=== PATIENT | male | born 1950 | race African-American/Black ===

== ENCOUNTER → 2017-06-26 | Outpatient (CLI) | payer MEDICARE, OTHER ==
[~2017-06-26] VITALS: Ht 182.9 cm; Wt 121.1 kg
[~2017-06-26] MED LIST: ADENOSINE 102 MG in GIVE UN-DILUTED 0 ML IV ONE; ADENOSINE 90 MG/30 ML INJ IV ONE; ATEN50TA OR; ENAL-3 OR; GABA-497 OR; INSUPOW; METF-370 OR
== END | disposition home or self-care (01) ==
LOC: Rad HDHVI 14:36
PROVIDERS: ATTEND Internal Medicine Cardiovascular Disease
DX: I10 Essential (primary) hypertension (principal); E78.00 Pure hypercholesterolemia, unspecified; I25.2 Old myocardial infarction; Z95.0 Presence of cardiac pacemaker
CPT/HCPCS: 78452; 93005; 96374; 96375; A9500; J0153

== ENCOUNTER 2017-09-04 17:36 | Emergency (ER) | payer MEDICARE, OTHER ==
[~2017-09-04] VITALS: Ht 182.9 cm; Wt 104.3 kg
[~2017-09-04 17:36] MED LIST changes: -ADENOSINE 102 MG in GIVE UN-DILUTED 0 ML IV ONE; -ADENOSINE 90 MG/30 ML INJ IV ONE; +ASPI81CH43 PO; -ATEN50TA OR; +ATOR20TA50 PO; +CHOL20007 PO; +CYCL5TAB PO; -ENAL-3 OR; +FURO20TA PO; -GABA-497 OR; +GABA-497 PO; +HYDR-4683 PO; -INSUPOW; +LISI10TA6 PO; -METF-370 OR; +METF-372 PO; +[UNRECOGNIZED DRUG - CODE] IV
[2017-09-04 19:03] VITALS: BP 111/78
[2017-09-04] MEDS ORDERED: LIDOCAINE 1% HCL (LOCAL ANESTH.) INJ 20ML MDV ONE (19:25)
[2017-09-04] MEDS ORDERED: cefTRIAXone SOD 1,000 MG VL IM ONE (19:30)
[2017-09-04 20:01] LABS: Urine Bacteria NONE SEEN /hpf (None Seen); Urine Blood 1+ /uL (Negative); Urine Mucus FEW (None Seen); Urine Specific Gravity 1.026 (1.001-1.035); Urine WBC 14 /hpf (0 - 3)
[2017-09-04] MEDS ORDERED: TIMOLOL MALEATE 0.25 % OPTH SOL 5ML LEFTEYE ONE (21:00)
== END 2017-09-04 22:22 | disposition home or self-care (01) ==
LOC: ER 17:37
DX: L03.116 Cellulitis of left lower limb (principal); H40.059 Ocular hypertension, unspecified eye; R51 Headache; F17.210 Nicotine dependence, cigarettes, uncomplicated; I50.9 Heart failure, unspecified; I11.0 Hypertensive heart disease with heart failure; J44.9 Chronic obstructive pulmonary disease, unspecified; E11.9 Type 2 diabetes mellitus without complications; Z86.73 Personal history of transient ischemic attack (TIA), and cerebral infarction without residual deficits
CPT/HCPCS: 70450; 73700; 81001; 96372; 99285; J0696; J2001

== ENCOUNTER 2018-01-13 09:04 | Inpatient (IN) | payer MEDICARE, OTHER ==
[~2018-01-13] VITALS: Ht 185.4 cm; Wt 124.2 kg
[~2018-01-13 09:04] MED LIST changes: -GABA-497 PO; +GABA300C10 PO
[2018-01-13] MEDS ORDERED: SODIUM CHLORIDE 0.9% 2,000 ML IV ONE (10:19)
[2018-01-13] MEDS ORDERED: TETANUS-DIPTH-ACEL PERTUSSIS 0.5ML SYRG IM ONE (11:30)
[2018-01-13] MEDS ORDERED: cefTRIAXone 1GM/10ml IVPUSH 10 ML IV ONE (11:30)
[2018-01-13 11:41] LABS: Basophils # (auto) 0 uL; Basophils % (auto) 0.5 % (0.0-2.0); Eosinophils # (auto) 0 uL; Eosinophils % (auto) 0.7 % (0.0-7.0); Hematocrit 43.3 % (41.0-53.0); Hemoglobin 14.2 g/dL (13.5-17.5); Lymphocytes # (auto) 2.1 uL; Lymphocytes % (auto) 34.6 % (10.0-50.0); Mean Corpuscular Hemoglobin 28.2 pg (28.0-32.0); Mean Corpuscular Hgb Conc. 32.8 g/dL (32.0-36.0); Monocytes # (auto) 0.5 uL; Neutrophils # (auto) 3.3 uL; Neutrophils % (auto) 55.2 % (37.0-80.0); Nucleated Red Blood Cells % 0.1 %; Platelet Count (auto) 184 10^3/uL (140-450); Red Blood Cells 5.03 10^6/uL (4.5-5.90); Red Cell Distribution Width 14.4 % (11.8-14.3)
[2018-01-13 11:54] LABS: INR 1.06 (0.9-1.15); Partial Thromboplastin Time 29.3 sec (22.64-33.71); Prothrombin Time 11.6 sec (9.37-12.3)
[2018-01-13 12:03] LABS: Albumin 2.8 g/dL (3.4-5.0); BUN/Creatinine Ratio 10.2; Bilirubin, Total 0.5 mg/dL (0.2-1.0); Potassium 3.1 mmol/L (3.5-5.1); Total Protein 6.5 g/dL (6.4-8.2)
[2018-01-13] MEDS ORDERED: DEXTROSE (50%) 50ML SYRG IV PRN (13:30)
[2018-01-13] MEDS ORDERED: ACETAMINOPHEN 325 MG TAB PO PRN (13:45)
[2018-01-13] MEDS ORDERED: HYDROcodone-ACET 5/325MG TAB PO PRN (13:45)
[2018-01-13] MEDS ORDERED: MORPHINE SULFATE 4 MG/ML SYR/VIAL IV PRN (13:45)
[2018-01-13] MEDS ORDERED: TEMAZEPAM 15 MG CAP PO PRN (13:45)
[2018-01-13] MEDS ORDERED: cloNIDine HCL 0.1 MG TAB PO PRN (13:45)
[2018-01-13] MEDS ORDERED: CYCLOBENZAPRINE HCL 10 MG TAB PO PRN (13:45)
[2018-01-13] MEDS ORDERED: ONDANSETRON HCL 4 MG/2 ML VIAL IV PRN (13:45)
[2018-01-13] MEDS ORDERED: DOCUSATE SOD 100 MG CAP PO PRN (13:45)
[2018-01-13] MEDS: CLINDAMYCIN 300MG IV 50 ML IV SCH ×2 (14:00→22:23)
[2018-01-13] MEDS: SODIUM CHLOR 0.9% PF (SALINE LOCK) 10ML VIAL IV SCH ×2 (14:00→22:23)
[2018-01-13] MEDS: GABAPENTIN 300 MG CAP PO SCH ×2 (14:00→22:23)
[2018-01-13] MEDS ORDERED: POTASSIUM CHL 10 Meq TABLET PO ONE (14:00)
[2018-01-13] MEDS ORDERED: LISINOPRIL 10 MG TAB PO ONE (14:15)
[2018-01-13] MEDS: InsuLIN REG 1unit/0.01ml Soln (100units/ml) SC SCH ×2 (17:00→22:00)
[2018-01-13] MEDS: ACCU-CHEK COMFORT CURVE STRIP VI SCH ×2 (17:23→22:24)
[2018-01-13 17:56] VITALS: BP 178/96
[2018-01-13] MEDS: Boost Glucose Control 8 Ounces PO SCH (18:00)
[2018-01-13] MEDS ORDERED: INSLANTI SC (21:11)
[2018-01-13] MEDS ORDERED: INSLISPI SC (21:11)
[2018-01-13 22:00] VITALS: BP 175/83
[2018-01-13] MEDS ORDERED: ATORVASTATIN 20 MG TAB PO SCH (22:00)
[2018-01-13 22:11] LABS: Urine Bacteria NONE SEEN /hpf (None Seen); Urine Blood TRACE /uL (Negative); Urine WBC 2 /hpf (0 - 3)
[2018-01-13] MEDS: FAMOTIDINE 20 MG TAB PO SCH (22:23)
[2018-01-13] MEDS: ASCORBIC ACID 500 MG TAB PO SCH (22:23)
[2018-01-13] MEDS: INSULIN LANTUS (GLARGINE) 1 /0.01ml (100units/ml) SC SCH (22:42)
[2018-01-14 05:00] VITALS: BP 141/76
[2018-01-14] MEDS: CLINDAMYCIN 300MG IV 50 ML IV SCH ×2 (06:04→14:33)
[2018-01-14] MEDS: SODIUM CHLOR 0.9% PF (SALINE LOCK) 10ML VIAL IV SCH ×2 (06:04→14:04)
[2018-01-14] MEDS: GABAPENTIN 300 MG CAP PO SCH ×2 (06:04→14:34)
[2018-01-14] MEDS: InsuLIN REG 1unit/0.01ml Soln (100units/ml) SC SCH ×2 (06:17→11:30)
[2018-01-14] MEDS: ACCU-CHEK COMFORT CURVE STRIP VI SCH ×2 (06:19→11:39)
[2018-01-14] MEDS: INSULIN LANTUS (GLARGINE) 1 /0.01ml (100units/ml) SC SCH (06:19)
[2018-01-14 07:31] LABS: Basophils # (auto) 0 uL; Basophils % (auto) 0.4 % (0.0-2.0); Eosinophils # (auto) 0.1 uL; Eosinophils % (auto) 1.5 % (0.0-7.0); Hematocrit 42.1 % (41.0-53.0); Hemoglobin 14.1 g/dL (13.5-17.5); Lymphocytes # (auto) 1.6 uL; Lymphocytes % (auto) 27.8 % (10.0-50.0); Mean Corpuscular Hemoglobin 28.9 pg (28.0-32.0); Mean Corpuscular Hgb Conc. 33.5 g/dL (32.0-36.0); Mean Corpuscular Volume 86.4 fL (80.0-100.0); Monocytes # (auto) 0.6 uL; Monocytes % (auto) 10.5 % (0.0-12.0); Neutrophils # (auto) 3.4 uL; Neutrophils % (auto) 59.8 % (37.0-80.0); Nucleated Red Blood Cells % 0.1 %; Platelet Count (auto) 176 10^3/uL (140-450); Red Blood Cells 4.88 10^6/uL (4.5-5.90); Red Cell Distribution Width 14.6 % (11.8-14.3); White Blood Cell 5.7 10^3/uL (4.4-10.8)
[2018-01-14 07:46] LABS: Albumin 2.7 g/dL (3.4-5.0); BUN/Creatinine Ratio 10.6; Bilirubin, Total 0.6 mg/dL (0.2-1.0); Calcium 8.2 mg/dL (8.5-10.1); Potassium 3.3 mmol/L (3.5-5.1); Total Protein 6.4 g/dL (6.4-8.2)
[2018-01-14] MEDS: Boost Glucose Control 8 Ounces PO SCH ×2 (08:05→12:19)
[2018-01-14] MEDS ORDERED: cefTRIAXone 1GM/10ml IVPUSH 10 ML IV SCH (09:00)
[2018-01-14 09:36] VITALS: BP 144/84
[2018-01-14] MEDS: ASCORBIC ACID 500 MG TAB PO SCH (09:38)
[2018-01-14] MEDS: FAMOTIDINE 20 MG TAB PO SCH (09:38)
[2018-01-14] MEDS ORDERED: ASPirin-EC 81 mg tab PO SCH (10:00)
[2018-01-14] MEDS ORDERED: ZINC SULFATE 220 MG CAP PO SCH (10:00)
[2018-01-14] MEDS ORDERED: FLUoxetine HCL 20 MG CAP PO SCH (10:00)
[2018-01-14] MEDS ORDERED: LISINOPRIL 10 MG TAB PO SCH (10:00)
[2018-01-14] MEDS ORDERED: FUROSEMIDE 20 MG TAB PO SCH (10:00)
[2018-01-14] MEDS ORDERED: MULTIPLE VITAMIN TAB PO SCH (10:00)
[2018-01-14] MEDS ORDERED: POTASSIUM CHL 10 Meq TABLET PO SCH (10:00)
[2018-01-14] MEDS ORDERED: CHOLECALCIFEROL (VITD3) 1,000 UNIT TAB PO SCH (10:00)
[2018-01-14 13:34] VITALS: BP 150/94
[2018-01-14 16:23] VITALS: BP 144/84
[2018-01-15] MEDS ORDERED: POTASSIUM CHL 10 Meq TABLET PO SCH (10:00)
== END 2018-01-14 16:40 | disposition home health service (06) | DRG 914 ==
LOC: ER 09:04 → OVERFLOW 09:05 → EAST 17:50
PROVIDERS: ADMIT Internal Medicine; ATTEND Internal Medicine
DX: S99.821A Other specified injuries of right foot, initial encounter (principal); E44.0 Moderate protein-calorie malnutrition; E10.21 Type 1 diabetes mellitus with diabetic nephropathy; E10.621 Type 1 diabetes mellitus with foot ulcer; I13.0 Hypertensive heart and chronic kidney disease with heart failure and stage 1 through stage 4 chronic kidney disease, or unspecified chronic kidney disease; L97.529 Non-pressure chronic ulcer of other part of left foot with unspecified severity; L97.519 Non-pressure chronic ulcer of other part of right foot with unspecified severity; E83.51 Hypocalcemia; E10.22 Type 1 diabetes mellitus with diabetic chronic kidney disease; N18.2 Chronic kidney disease, stage 2 (mild); I25.10 Atherosclerotic heart disease of native coronary artery without angina pectoris; E87.6 Hypokalemia; F17.210 Nicotine dependence, cigarettes, uncomplicated; F32.9 Major depressive disorder, single episode, unspecified; J44.9 Chronic obstructive pulmonary disease, unspecified; N18.9 Chronic kidney disease, unspecified; S91.302A Unspecified open wound, left foot, initial encounter; I50.9 Heart failure, unspecified; Z53.21 Procedure and treatment not carried out due to patient leaving prior to being seen by health care provider; W25.XXXA Contact with sharp glass, initial encounter; Z86.73 Personal history of transient ischemic attack (TIA), and cerebral infarction without residual deficits; Z23 Encounter for immunization; Z89.412 Acquired absence of left great toe; I25.2 Old myocardial infarction; Z95.0 Presence of cardiac pacemaker; Z95.5 Presence of coronary angioplasty implant and graft; Z68.36 Body mass index [BMI] 36.0-36.9, adult; Z90.49 Acquired absence of other specified parts of digestive tract; Z88.0 Allergy status to penicillin; Z79.899 Other long term (current) drug therapy; Z79.82 Long term (current) use of aspirin; Z80.8 Family history of malignant neoplasm of other organs or systems; Z82.49 Family history of ischemic heart disease and other diseases of the circulatory system; Y99.8 Other external cause status; Y92.008 Other place in unspecified non-institutional (private) residence as the place of occurrence of the external cause; Y93.E9 Activity, other interior property and clothing maintenance
CPT/HCPCS: 36415; 71046; 73700; 80053; 81001; 82962; 83036; 83605; 83880; 84443; 84484; 85025; 85610; 85730; 87040; 87077; 87086; 87186; 87205; 90471; 90715; 93005; 96361; 96374; 96375; J1815; J3490

== ENCOUNTER 2018-04-15 22:20 | Inpatient (IN) | payer MEDICARE, OTHER ==
[~2018-04-15] VITALS: Ht 185.4 cm; Wt 116.8 kg
[~2018-04-15 22:20] MED LIST changes: -ASPI81CH43 PO; +INSLANTI SC; +INSLISPI SC
[2018-04-15 22:56] LABS: Basophils # (auto) 0 uL; Basophils % (auto) 0.8 % (0.0-2.0); Eosinophils # (auto) 0.1 uL; Eosinophils % (auto) 2.2 % (0.0-7.0); Hematocrit 41.5 % (41.0-53.0); Hemoglobin 13.5 g/dL (13.5-17.5); Lymphocytes # (auto) 1.7 uL; Lymphocytes % (auto) 28.2 % (10.0-50.0); Mean Corpuscular Hemoglobin 28.4 pg (28.0-32.0); Mean Corpuscular Hgb Conc. 32.6 g/dL (32.0-36.0); Mean Corpuscular Volume 87.1 fL (80.0-100.0); Monocytes # (auto) 0.5 uL; Monocytes % (auto) 8.6 % (0.0-12.0); Neutrophils # (auto) 3.5 uL; Neutrophils % (auto) 60.2 % (37.0-80.0); Platelet Count (auto) 191 10^3/uL (140-450); Red Blood Cells 4.77 10^6/uL (4.5-5.90); Red Cell Distribution Width 15.5 % (11.8-14.3); White Blood Cell 5.9 10^3/uL (4.4-10.8)
[2018-04-15 23:11] LABS: INR 1.06 (0.9-1.15); Partial Thromboplastin Time 27.4 sec (23.78-33.04); Prothrombin Time 11.3 sec (9.27-12.13)
[2018-04-15 23:14] LABS: Albumin 2.5 g/dL (3.4-5.0); BUN/Creatinine Ratio 8.5; Magnesium 1.8 mg/dL (1.6-2.6)
[2018-04-15 23:19] LABS: Bilirubin, Total 0.5 mg/dL (0.2-1.0); Total Protein 6.5 g/dL (6.4-8.2)
[2018-04-15 23:23] LABS: Potassium 2.9 mmol/L (3.5-5.1)
[2018-04-16] MEDS ORDERED: POTASSIUM CHL 10% (20 MEQ/15ML) 15ml ORAL SOLN PO ONE (00:15)
[2018-04-16] MEDS ORDERED: cefTRIAXone 1GM/10ml IVPUSH 10 ML IV ONE (01:30)
[2018-04-16] MEDS ORDERED: VANCOMYCIN 1GM/250ML 250 ML IV ONE (01:30)
[2018-04-16] MEDS ORDERED: MEPERIDINE HCL (50 MG/ML) 1 ML VIAL IV ONE (05:00)
[2018-04-16] MEDS ORDERED: TEMAZEPAM 15 MG CAP PO PRN (05:45)
[2018-04-16] MEDS ORDERED: cloNIDine HCL 0.1 MG TAB PO ONE ×2 (05:45→06:45)
[2018-04-16] MEDS ORDERED: MORPHINE SULF(PF) 0.5MG/ML 10ML VIAL IV PRN (05:45)
[2018-04-16] MEDS ORDERED: NITROGLYCERIN 0.4 MG SL TAB SL PRN (05:45)
[2018-04-16] MEDS ORDERED: DOCUSATE SOD 100 MG CAP PO PRN (05:45)
[2018-04-16] MEDS ORDERED: VANCOMYCIN PER PHARMACY 0 MG IV SCH (05:45)
[2018-04-16] MEDS ORDERED: ONDANSETRON HCL 4 MG/2 ML VIAL IV PRN (05:45)
[2018-04-16] MEDS ORDERED: ACETAMINOPHEN 325 MG TAB PO PRN (05:45)
[2018-04-16] MEDS ORDERED: DEXTROSE (50%) 50ML SYRG IV PRN (05:45)
[2018-04-16] MEDS: InsuLIN REG 1unit/0.01ml Soln (100units/ml) SC SCH ×3 (06:00→16:56)
[2018-04-16] MEDS: FUROSEMIDE 20 MG/2 ML VIAL IV SCH ×2 (06:00→18:35)
[2018-04-16] MEDS ORDERED: FUROSEMIDE 20 MG TAB PO SCH (06:00)
[2018-04-16] MEDS: ACCU-CHEK COMFORT CURVE STRIP VI SCH ×3 (06:00→16:55)
[2018-04-16 07:34] LABS: Albumin 2.7 g/dL (3.4-5.0); BUN/Creatinine Ratio 8.1; Bilirubin, Total 0.4 mg/dL (0.2-1.0); Potassium 3.2 mmol/L (3.5-5.1); Total Protein 6.5 g/dL (6.4-8.2)
[2018-04-16 07:47] LABS: Urine Bacteria NONE SEEN /hpf (None Seen); Urine Blood Negative /uL (Negative); Urine Specific Gravity 1.007 (1.001-1.035); Urine WBC 7 /hpf (0 - 3)
[2018-04-16] MEDS: LISINOPRIL 5 MG TAB PO SCH (09:28)
[2018-04-16] MEDS: POTASSIUM CHL 20 Meq TABLET PO SCH (09:28)
[2018-04-16] MEDS: FAMOTIDINE 20 MG TAB PO SCH ×2 (09:28→21:55)
[2018-04-16] MEDS: cefTRIAXone 1GM/10ml IVPUSH 10 ML IV SCH (09:28)
[2018-04-16] MEDS: ENOXAPARIN SOD 40 MG/0.4 ML SYRINGE SC SCH (09:29)
[2018-04-16] MEDS: ENALAPRIL MALEATE 10 MG TAB PO SCH (09:29)
[2018-04-16] MEDS: VANCOMYCIN 1GM/250ML 250 ML IV SCH ×2 (11:15→18:36)
[2018-04-16] MEDS ORDERED: POTASSIUM CHL 20 Meq TABLET PO ONE (11:45)
[2018-04-16 17:00] VITALS: BP 136/64
[2018-04-16 17:07] VITALS: BP 136/64
[2018-04-16] MEDS: ATORVASTATIN 20 MG TAB PO SCH (21:55)
[2018-04-16 22:00] VITALS: BP 160/89
[2018-04-17] MEDS: ACCU-CHEK COMFORT CURVE STRIP VI SCH ×5 (00:01→23:53)
[2018-04-17] MEDS: HYDROcodone-ACET 5/325MG TAB PO PRN ×3 (01:06→22:40)
[2018-04-17 01:55] LABS: Basophils # (auto) 0 uL; Basophils % (auto) 0.7 % (0.0-2.0); Eosinophils # (auto) 0.2 uL; Hematocrit 41.8 % (41.0-53.0); Hemoglobin 13.9 g/dL (13.5-17.5); Lymphocytes # (auto) 1.4 uL; Lymphocytes % (auto) 27.4 % (10.0-50.0); Mean Corpuscular Hemoglobin 28.8 pg (28.0-32.0); Mean Corpuscular Hgb Conc. 33.3 g/dL (32.0-36.0); Mean Corpuscular Volume 86.5 fL (80.0-100.0); Monocytes # (auto) 0.5 uL; Monocytes % (auto) 9.6 % (0.0-12.0); Neutrophils # (auto) 3.1 uL; Neutrophils % (auto) 59.3 % (37.0-80.0); Platelet Count (auto) 188 10^3/uL (140-450); Red Blood Cells 4.83 10^6/uL (4.5-5.90); Red Cell Distribution Width 15.1 % (11.8-14.3); White Blood Cell 5.2 10^3/uL (4.4-10.8)
[2018-04-17 02:13] LABS: Albumin 2.5 g/dL (3.4-5.0); BUN/Creatinine Ratio 10.4; Calcium 8.2 mg/dL (8.5-10.1); Potassium 3.4 mmol/L (3.5-5.1)
[2018-04-17 02:16] LABS: Bilirubin, Total 0.5 mg/dL (0.2-1.0); Total Protein 6.6 g/dL (6.4-8.2)
[2018-04-17] MEDS: VANCOMYCIN 1GM/250ML 250 ML IV SCH ×3 (02:58→21:06)
[2018-04-17 05:00] VITALS: BP 147/82
[2018-04-17] MEDS: InsuLIN REG 1unit/0.01ml Soln (100units/ml) SC SCH ×5 (06:00→23:53)
[2018-04-17] MEDS: FUROSEMIDE 20 MG/2 ML VIAL IV SCH ×2 (06:19→18:35)
[2018-04-17 08:10] VITALS: BP 143/71
[2018-04-17] MEDS ORDERED: POTASSIUM CHL 20 Meq TABLET PO ONE (08:15)
[2018-04-17] MEDS: POTASSIUM CHL 20 Meq TABLET PO SCH (10:23)
[2018-04-17] MEDS: ENOXAPARIN SOD 40 MG/0.4 ML SYRINGE SC SCH (10:23)
[2018-04-17] MEDS: cefTRIAXone 1GM/10ml IVPUSH 10 ML IV SCH (10:23)
[2018-04-17] MEDS: ENALAPRIL MALEATE 10 MG TAB PO SCH (10:24)
[2018-04-17] MEDS: FAMOTIDINE 20 MG TAB PO SCH ×2 (10:24→22:39)
[2018-04-17] MEDS: LISINOPRIL 5 MG TAB PO SCH (10:24)
[2018-04-17 11:49] VITALS: BP 122/73
[2018-04-17 16:35] VITALS: BP 136/80
[2018-04-17 22:00] VITALS: BP 162/96
[2018-04-17] MEDS: ATORVASTATIN 20 MG TAB PO SCH (22:39)
[2018-04-18] MEDS: VANCOMYCIN 1GM/250ML 250 ML IV SCH ×3 (04:58→21:43)
[2018-04-18 05:00] VITALS: BP 155/78
[2018-04-18] MEDS: FUROSEMIDE 20 MG/2 ML VIAL IV SCH ×2 (05:56→18:41)
[2018-04-18] MEDS: ACCU-CHEK COMFORT CURVE STRIP VI SCH ×3 (05:57→17:29)
[2018-04-18] MEDS: InsuLIN REG 1unit/0.01ml Soln (100units/ml) SC SCH ×3 (05:57→17:29)
[2018-04-18 08:13] LABS: Basophils # (auto) 0 uL; Basophils % (auto) 0.2 % (0.0-2.0); Eosinophils # (auto) 0.1 uL; Eosinophils % (auto) 2.3 % (0.0-7.0); Hematocrit 42.6 % (41.0-53.0); Hemoglobin 14.3 g/dL (13.5-17.5); Lymphocytes # (auto) 1.6 uL; Lymphocytes % (auto) 30.1 % (10.0-50.0); Mean Corpuscular Hemoglobin 29.1 pg (28.0-32.0); Mean Corpuscular Hgb Conc. 33.5 g/dL (32.0-36.0); Mean Corpuscular Volume 86.8 fL (80.0-100.0); Monocytes # (auto) 0.5 uL; Monocytes % (auto) 10.4 % (0.0-12.0); Nucleated Red Blood Cells % 0.2 %; Platelet Count (auto) 186 10^3/uL (140-450); Red Blood Cells 4.91 10^6/uL (4.5-5.90); Red Cell Distribution Width 14.9 % (11.8-14.3); White Blood Cell 5.3 10^3/uL (4.4-10.8)
[2018-04-18 08:25] LABS: Albumin 2.7 g/dL (3.4-5.0); BUN/Creatinine Ratio 11.9; Bilirubin, Total 0.6 mg/dL (0.2-1.0); Calcium 8.5 mg/dL (8.5-10.1); Potassium 3.5 mmol/L (3.5-5.1); Total Protein 6.8 g/dL (6.4-8.2)
[2018-04-18 09:00] VITALS: BP 143/79
[2018-04-18] MEDS: ENOXAPARIN SOD 40 MG/0.4 ML SYRINGE SC SCH (10:10)
[2018-04-18] MEDS: FAMOTIDINE 20 MG TAB PO SCH ×2 (10:10→21:43)
[2018-04-18] MEDS: ENALAPRIL MALEATE 10 MG TAB PO SCH (10:11)
[2018-04-18] MEDS: POTASSIUM CHL 20 Meq TABLET PO SCH (10:11)
[2018-04-18] MEDS: LISINOPRIL 5 MG TAB PO SCH (10:11)
[2018-04-18 13:00] VITALS: BP 143/86
[2018-04-18] MEDS: cefTRIAXone 1GM/10ml IVPUSH 10 ML IV SCH (14:33)
[2018-04-18 17:00] VITALS: BP 150/109
[2018-04-18] MEDS: ATORVASTATIN 20 MG TAB PO SCH (21:43)
[2018-04-18] MEDS: HYDROcodone-ACET 5/325MG TAB PO PRN (21:47)
[2018-04-18 22:29] VITALS: BP 152/81
[2018-04-19] MEDS: InsuLIN REG 1unit/0.01ml Soln (100units/ml) SC SCH ×2 (00:31→06:00)
[2018-04-19] MEDS: ACCU-CHEK COMFORT CURVE STRIP VI SCH ×2 (00:31→06:34)
[2018-04-19] MEDS: VANCOMYCIN 1GM/250ML 250 ML IV SCH (05:16)
[2018-04-19 05:19] VITALS: BP 147/57
[2018-04-19] MEDS: FUROSEMIDE 20 MG/2 ML VIAL IV SCH (06:35)
[2018-04-19 08:00] VITALS: BP 137/76
[2018-04-19 08:18] LABS: Basophils # (auto) 0 uL; Basophils % (auto) 0.6 % (0.0-2.0); Eosinophils # (auto) 0.2 uL; Eosinophils % (auto) 3.2 % (0.0-7.0); Hematocrit 46.9 % (41.0-53.0); Hemoglobin 15.9 g/dL (13.5-17.5); Lymphocytes # (auto) 2.1 uL; Lymphocytes % (auto) 36.6 % (10.0-50.0); Mean Corpuscular Hemoglobin 29.1 pg (28.0-32.0); Mean Corpuscular Hgb Conc. 33.8 g/dL (32.0-36.0); Monocytes # (auto) 0.5 uL; Neutrophils # (auto) 2.8 uL; Neutrophils % (auto) 50.6 % (37.0-80.0); Nucleated Red Blood Cells % 0.2 %; Platelet Count (auto) 225 10^3/uL (140-450); Red Blood Cells 5.45 10^6/uL (4.5-5.90); Red Cell Distribution Width 14.7 % (11.8-14.3); White Blood Cell 5.6 10^3/uL (4.4-10.8)
[2018-04-19 08:25] LABS: Potassium 3.7 mmol/L (3.5-5.1)
[2018-04-19] MEDS: cefTRIAXone 1GM/10ml IVPUSH 10 ML IV SCH (09:00)
[2018-04-19] MEDS: ENOXAPARIN SOD 40 MG/0.4 ML SYRINGE SC SCH (10:00)
[2018-04-19] MEDS ORDERED: CARVEDILOL 3.125 MG TAB PO SCH (10:00)
[2018-04-19] MEDS: FAMOTIDINE 20 MG TAB PO SCH (10:52)
[2018-04-19] MEDS: POTASSIUM CHL 20 Meq TABLET PO SCH (10:52)
[2018-04-19] MEDS: ENALAPRIL MALEATE 10 MG TAB PO SCH (10:54)
[2018-04-19 11:20] VITALS: BP 137/76
== END 2018-04-19 13:00 | disposition home or self-care (01) | DRG 565 ==
LOC: ER 22:20 → EDBD 22:20 → TELE 22:21 → TELE-WESTW 04-16 15:26
PROVIDERS: ADMIT Nurse Practitioner; ATTEND Internal Medicine
DX: T87.44 Infection of amputation stump, left lower extremity (principal); L03.116 Cellulitis of left lower limb; E44.0 Moderate protein-calorie malnutrition; L89.899 Pressure ulcer of other site, unspecified stage; Y83.8 Other surgical procedures as the cause of abnormal reaction of the patient, or of later complication, without mention of misadventure at the time of the procedure; E11.65 Type 2 diabetes mellitus with hyperglycemia; E66.01 Morbid (severe) obesity due to excess calories; Z68.34 Body mass index [BMI] 34.0-34.9, adult; E11.69 Type 2 diabetes mellitus with other specified complication; E87.6 Hypokalemia; F17.210 Nicotine dependence, cigarettes, uncomplicated; I11.0 Hypertensive heart disease with heart failure; G47.00 Insomnia, unspecified; K59.00 Constipation, unspecified; I50.9 Heart failure, unspecified; J44.9 Chronic obstructive pulmonary disease, unspecified; Z86.73 Personal history of transient ischemic attack (TIA), and cerebral infarction without residual deficits; I25.2 Old myocardial infarction; Y92.89 Other specified places as the place of occurrence of the external cause; Z89.412 Acquired absence of left great toe; Z95.0 Presence of cardiac pacemaker; Z88.0 Allergy status to penicillin; Z79.899 Other long term (current) drug therapy; Z90.49 Acquired absence of other specified parts of digestive tract; Z98.61 Coronary angioplasty status; Z89.422 Acquired absence of other left toe(s); Z80.8 Family history of malignant neoplasm of other organs or systems
CPT/HCPCS: 36415; 70450; 71045; 73630; 73700; 78315; 80048; 80053; 80202; 81001; 82962; 83735; 83880; 84484; 85025; 85610; 85730; 87077; 87186; 87205; 93005; 93970; 96365; 96372; 96375; 96376; J1815